=== PATIENT | female | born 1970 | race Two or more races ===

== ENCOUNTER 2023-08-01 11:41 | Outpatient (OUT) | payer BC, SELFPAY ==
[2023-08-01 12:14] LABS: Basophils Percent Auto 0.3 % (0.2-2.0); Eosinophils Absolute Auto 0.1 10^3/uL (0.0-0.7); Eosinophils Percent Auto 1.2 % (0.9-7.0); Hematocrit 44.6 % (36.0-48.0); Hemoglobin 15.3 g/dL (12.0-16.0); Immature Granulocytes Abs Auto 0.03 10^3/uL (0.00-0.03); Immature Granulocytes Pct Auto 0.3 % (0.0-0.5); Lymphocytes Absolute Auto 2.4 10^3/uL (1.2-3.8); Lymphocytes Percent Auto 24.7 % (20.5-60.0); Mean Corpuscular HGB Conc 34.3 g/dL (29.9-35.2); Mean Corpuscular Volume 90.5 fL (81.0-99.0); Mean Platelet Volume 9.7 fL (9.5-13.5); Monocytes Absolute Auto 0.7 10^3/uL (0.3-0.8); Neutrophils Absolute Auto 6.6 10^3/uL (1.4-6.5); Neutrophils Percent Auto 66.5 % (43.0-75.0); Platelet Count 236 10^3/uL (150-450); Red Blood Count 4.93 10^6/uL (4.20-5.40); Red Cell Distribution Width 12.7 % (11.0-15.0); White Blood Count 9.9 10^3/uL (4.0-11.0)
[2023-08-01 12:54] LABS: Estimated Average Glucose 108 mg/dL; Glycohemoglobin A1C 5.4 % (4.5-6.2)
[2023-08-01 12:55] LABS: Alanine Aminotransferase 28 U/L (14-59); Albumin Globulin Ratio 0.9; Albumin Level 3.8 g/dL (3.4-5.0); Alkaline Phosphatase 69 U/L (46-116); Anion Gap 12.8; Aspartate Amino Transferase 15 U/L (15-37); BUN Creatinine Ratio 18.8; Bilirubin Total 1.2 mg/dL (0.2-1.0); Carbon Dioxide 25.8 mmol/L (21.0-32.0); Chloride 99 mmol/L (98-107); Chol HDL Ratio 5.6; Cholesterol 267 mg/dL (<=200); Estimated GFR (African America >60 (>=60); Estimated GFR (Non-African Ame >60 (>=60); Globulin 4.2 g/dL; Glucose 99 mg/dL (74-106); HDL Cholesterol 48 mg/dL (40-60); Potassium 3.6 mmol/L (3.5-5.1); Sodium 134 mmol/L (136-145); Triglycerides 90 mg/dL (<=150)
== END 2023-08-01 11:42 | disposition home or self-care (01) ==
LOC: LAB 11:52
PROVIDERS: PCP Nurse Practitioner Family; Visit Provider Nurse Practitioner Family
DX: E78.5 Hyperlipidemia, unspecified (principal); E11.9 Type 2 diabetes mellitus without complications
CPT/HCPCS: 36415; 80053; 80061; 83036; 85025

== ENCOUNTER 2023-08-07 14:24 | Outpatient (OUT) | payer BC, SELFPAY ==
--- NOTE | 2023-08-07 14:30 | MM_ITS ---
Patient Name: NAKIA DUPONT MR#: [id number] : 1970 Exam Date: 08/07/2023 Ordering Doctor: LEONARDA GRIFFITH [facility] RADIOLOGY REPORT PROCEDURE: MM TOMOSYNTHESIS SCREENING BI COMPARISON: None. INDICATIONS: screening Calculator Name NCI Breast Cancer Risk Assessment Tool 5 Year Breast Cancer Risk 1.50% Lifetime Breast Cancer Risk 12.00% Personal Breast Cancer No Personal Ovarian Cancer No Treatments None Family Cancers Mother with breast cancer at age ~62; Aunt-maternal with breast cancer at age ~60. LOCATION: [facility] BREAST COMPOSITION: Heterogeneously dense,which may obscure small masses. FINDINGS: DIAGNOSTIC CATEGORY 2--BENIGN FINDING: RIGHT BREAST: No significant suspicious finding. Scattered benign-appearing calcifications are present. LEFT BREAST: No significant suspicious finding. Benign-appearing lymph node upper inner quadrant mid breast. RECOMMENDATIONS: ROUTINE MAMMOGRAM AND CLINICAL EVALUATION IN 12 MONTHS. PLEASE NOTE: A NORMAL MAMMOGRAM DOES NOT EXCLUDE THE POSSIBILITY OF BREAST CANCER. A CLINICALLY SUSPICIOUS PALPABLE LUMP SHOULD BE BIOPSIED. Dictated by: Jhonatan Gonzalez M.D. on 08/21/2023 at 08:10 Approved by: Jhonatan Gonzalez M.D. on 08/21/2023 at 08:17
--- NOTE | 2023-08-07 14:31 | US_ITS ---
[place] [id number] Patient Name: NAKIA DUPONT MRN: [id number] date: 1970 Sex: F Assigned Patient Location: MAMMO Current Patient Location: Accession/Order Number: [id number] Exam Date: 08/07/2023 15:30 Report Date: 08/08/2023 07:17 At the request of: LEONARDA GRIFFITH Procedure: US carotid duplex BI EXAMINATION: US carotid duplex BI HISTORY: Elevated blood pressure reading R03.0, Dizzyness R42 COMPARISON: No relevant comparison available. TECHNIQUE: Duplex Doppler ultrasound analysis of carotid and vertebral arteries. . Bilateral carotid arterial duplex examination was performed using B-mode, color flow and spectral analysis. Carotid stenosis is reported according to validated velocity parameters, similar to NASCET criteria. FINDINGS: RIGHT CAROTID ARTERY Mild atherosclerotic plaque Subclavian: PSV: 118.1 cm/s cm/s EDV: 0.0 cm/s cm/s CCA: Prox: PSV: 114.5 cm/s cm/s EDV: 27.3 cm/s cm/s Mid: PSV: 108.0 cm/s cm/s EDV: 33.8 cm/s cm/s Distal: PSV: 79.8 cm/s cm/s EDV: 21.5 cm/s cm/s BULB: PSV: 55.7 cm/s cm/s EDV: 18.2 cm/s cm/s ICA: Prox: PSV: 65.1 cm/s cm/s EDV: 23.2 cm/s cm/s Mid: PSV: 65.9 cm/s cm/s EDV: 29.3 cm/s cm/s Distal: PSV: 74.2 cm/s cm/s EDV: 25.7 cm/s cm/s ECA: PSV: 115.7 cm/s cm/s EDV: 13.9 cm/s cm/s VERTEBRAL: PSV: 44.7 cm/s cm/s EDV: 15.1 cm/s cm/s, antegrade ICA/CCA ratio: PSV: 0.7 EDV: 0.8 LEFT CAROTID ARTERY mild atherosclerotic plaque Subclavian: PSV: 106.5 cm/s cm/s EDV: 0.0 cm/s CCA: Prox: PSV: 81.4 cm/s cm/s EDV: 24.5 cm/s Mid: PSV: 79.0 cm/s cm/s EDV: 19.7 cm/s Distal: PSV: 71.2 cm/s cm/s EDV: 21.5 cm/s BULB: PSV: 72.9 cm/s cm/s EDV: 23.2 cm/s ICA: Prox: PSV: 63.3 cm/s cm/s EDV: 22.3 cm/s Mid: PSV: 65.9 cm/s cm/s EDV: 26.7 cm/s Distal: PSV: 67.7 cm/s cm/s EDV: 24.9 cm/s ECA: PSV: 118.9 cm/s cm/s EDV: 18.7 cm/s VERTEBRAL: PSV: 69.4 cm/s cm/s EDV: 20.6 cm/s , antegrade ICA/CCA ratio: PSV: 0.9 EDV: 1.2 Left thyroid nodule and left neck cervical lymphadenopathy US/US carotid duplex BI IMPRESSION: 0-49% flow stenosis bilateral internal carotid arteries Left thyroid nodule consider dedicated thyroid ultrasound Spectral Doppler US Thresholds (Reference: Franki EG, et al. Radiology 2000; 214:247-252) Stenosis (%) PSV (cm/sec) VICA/VCCA 0-49 <150 <2.5 50-69 150-225 2.5-4.0 >70 >225 >4.0 Electronically authenticated by: OCHOA CANTOR Date: 08/08/2023 07:17
== END 2023-08-07 14:25 | disposition home or self-care (01) ==
LOC: MAMMO 14:25
PROVIDERS: PCP Nurse Practitioner Family; Visit Provider Nurse Practitioner Family
DX: R03.0 Elevated blood-pressure reading, without diagnosis of hypertension (principal); R42 Dizziness and giddiness; Z12.31 Encounter for screening mammogram for malignant neoplasm of breast; E04.1 Nontoxic single thyroid nodule; Z80.3 Family history of malignant neoplasm of breast
CPT/HCPCS: 77063; 77067; 93880

== ENCOUNTER 2023-09-05 13:41 | Outpatient (OUT) | payer BC, SELFPAY ==
--- NOTE | 2023-09-05 14:00 | CA_ITS ---
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1970 Requested By: Zainab Morrell Order Number: [id number] Reading MD: RICHA KEARNEY Interpretive Statements Predominant rhythm is sinus with average rate of 74 bpm Tachycardia - max rate of 123 bpm (NSVT) - longest episode of 1min 56sec with rates between 105-112 bpm Bradycardia - min rate of 46 bpm - longest episode of 24min 57sec with rates between 51-57 bpm Ventricular ectopy - 37 total - 26 PVC NSVT - 1 episode of 11 beat duration Patient triggered events: 7 - associated with symptoms of palpitations, lightheadedness - associated with NSVT, VE - associated with rates of 101 and the rest NSR Impression: Predominant rhythm is sinus with average rate of 74 bpm Fastest rate of 123 bpm (NSVT) and slowest rate of 46 bpm NSVT of 11 beat duration No atrial fibrillation No pauses or blocks Electronically Signed On 09-16-2023 23:10:39 EDT by RICHA KEARNEY
--- OUTSIDE RECORDS SUMMARY | 2023-09-05 14:02 | XMS_ITS | CCD ---
Author Name Unknown Address [address] [place] [address] Organization [facility] Care Team Providers Care Scowman Name Role Phone Zainab Morrell Unavailable NORMA Morrell Primary Care Provider NORMA Morrell Attending Provider [phone] Zainab Morrell Attending Unavailable Zainab Morrell Primary Care Unavailable Zainab Morrell Admitting Unavailable ANGELA TRUONG Referring Unavailable ANGELA TRUONG Attending Unavailable SELF Referring Unavailable Problems Problem Classification Problem Date Documented Date Episodic/Chronic Anxiety disorders (2 sources) Anxiety; Translations: [Anxiety disorder, unspecified] Chronic Cardiac dysrhythmias (1 source) Palpitations; Translations: [Palpitations] Onset: 08-25-2023 Episodic Diabetes mellitus without complication (2 sources) Type 2 diabetes mellitus without complication; Translations: [Type 2 diabetes mellitus without complications] Chronic Disorders of lipid metabolism (3 sources) Hyperlipidemia; Translations: [Hyperlipidemia, unspecified] Onset: 08-25-2023 Chronic Menopausal disorders (2 sources) Perimenopausal state; Translations: [Menopausal and female climacteric states] Chronic Other liver diseases (2 sources) Fatty (change of) liver, not elsewhere classified; Translations: [Fatty liver disease, nonalcoholic] Chronic Other nutritional; endocrine; and metabolic disorders (1 source) Morbid (severe) obesity due to excess calories; Translations: [Obesity, Class III, BMI 40-49.9 (morbid obesity) (HCC)] Onset: 08-25-2023 Chronic Other nutritional; endocrine; and metabolic disorders (1 source) Body mass index (BMI) 40.0-44.9, adult; Translations: [BMI 40.0-44.9, adult (HCC)] Onset: 08-25-2023 Chronic Residual codes; unclassified (1 source) Genetic susceptibility to other disease; Translations: [MTHFR mutation] Onset: 08-25-2023 Episodic Thyroid disorders (4 sources) Thyroid nodule; Translations: [Nontoxic single thyroid nodule] Onset: 08-14-2023 Chronic Results Test Name Value Interpretation Reference Range Facility 25(OH)D3 SerPl-ncon 2023 25-hydroxyvitamin D3 [Mass/Vol] 44.8 ng/mL Normal 31.0-80.0 [facility] Comment on above: Order Comment: Speci men Type: BLOOD SPECIMEN Ordering Facility: [facility] Address: [address] [place] [address] Result Comment: Clas sification of 25 [place] Vitamin D status: Deficiency/Insufficiency: < or = 30 ng/ml. Sufficiency/Optimal Levels: 31-80 ng/mL Toxicity: > 100 ng/mL. Test performed by chemiluminescent immunoassay. Performed By: #### 1 989-3 #### [facility] CLIA [id number] [address] [place] [address] OF [facility] CNOVon 08-25-2023 CNOV Office Visit (FERNANDO ) NAKIA DUPONT ([id number]) 1970 F Date Time Provider Department 08/25/23 11:00 AM ANGELA TRUONG During your visit today, we recorded the following information about you: Pulse Blood pressure Weight Height 64/minute 130/85 103 kg 1.575 m Angela Truong DO 08/25/2023 12:44 PM Signed [facility] SUBJECTIVE: Nakia Segura Miah is a 53 year old female with a PMH as listed below is a new patient who presents for a wellness consult. Consultation requested by self. Accompanied by , Jordi CC: anxiety, menopause HPI: Nakia just moved from [place] and is establishing care at [facility]. She states she doesn't feel herself. She has been taking better care of herself in the past 3 years. In 2020 she was up to 268 lbs, was diabetic and on Metformin. She was in perimenopause. She had cholecystectomy in Jan 2021. Prior to this she had bad case of thrush. She dropped to 196 lbs. She was walking a lot in [place]. She had thinning hair and hair loss. TSH 0.89 in 2021. She had a thyroid US a couple weeks ago that showed thyroid nodules. Had brain MRI in [place] in 2022 for headaches, pulsating noise in ears. She reports MRI was normal. She feels pressure and stopped up sensation in left ear. I want to know if there are hidden issues. In 2018 she developed panic attacks while driving on the highways. No h/o anxiety or panic attacks. No longer having panic attacks but she does have anxiety and wonders if it is due to menopausal changes. She was on HRT in 2021. LMP 1-2 weeks ago. Menstrual cycles are irregular. FSH is in menopausal range. +Hot flashes, mood swings. Wellness goals: I want to feel like myself again. She wants to reducing anxiety and address the need to move because of pulsing sensation. She brought copies of medical records. Thyroid US 08/14/23 - thyroid nodules with largest in the left lobe. FNA scheduled on 09/29 in [place]. Brain MRI 07/13/22 - normal Labs 08/01/23 (LDL 201, A1c 5.4, nml CBC and CMP) She reports MTHFR mutation. Patient-Entered Questionnaires [facility] Physical Function 08/19/2023 PROMIS Physical Function T-Score 50 (within normal limits) [facility] Pain Interference 08/19/2023 PROMIS Pain Interference T-Score (range: 10 - 90) 54 (within normal limits) [facility] Fatigue 08/19/2023 PROMIS Fatigue T-Score 48 (within normal limits) [facility] Satisfaction with Social Roles 08/19/2023 PROMIS - Satisfaction with Participation in Social Roles T-Score 52 (Average) [facility] Anxiety 08/19/2023 PROMIS Anxiety T-Score 62 (moderate) [facility] Sleep Disturbance 08/19/2023 PROMIS Sleep Disturbance T-Score 54 (within normal limits) [facility] NEUROQOL COGNITIVE T-SCORE 08/19/2023 PROMIS Neuroqol Cognitive T-Score 52 (within normal limits) DIET OVERVIEW: Eats healthy foods with healthy fats. She cooks at home. Sourdough bread. Not eating out much. No fast food. Food allergies: none Food sensitivities: wheat bothers her and makes prickly (no FHx celiac) 24h DIETARY RECALL: B: 2-3 eggs cooked in EVOO with sourdough or Siete almond flour tortillas. May add turkey or uncured mackey. Or ground beef with scrambled eggs. L: snacks D: 3 chicken legs, avocado, yellow potatoes Sweets: some ice cream, Christel's lucy chips, GF muffin mix Snacks: pork rinds, sprouted nuts, pumpkin seeds, banana chips, cranberries Nguyen: water, 1/2 can Zevia/day. Occ juice, 1/2 coffee with half and half. Alc: none LES: muffin, sourdough, cheese MEAL TIMING: B: 11 am L: skips or has tuna and EVOO or eggs and hays with almond flour crackers D: 4-5 pm. LES 10-10:30 pm PHYSICAL ACTIVITY: Some walking but very little exercise. SLEEP: Sleep quality: Trouble staying asleep (anxiety) x 3 years. Sleep aids: bedtime teas Bedtime: 10-midnight Wake time: 9-10 am Hours/night: 6-8h/night -Snoring STRESS LEVELS: High. When not feeling well she worries. STRESS RELIEF: Nothing. No support system here. 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 No current outpatient medications on file. No current facility-administered medications for this visit. No family history on file. REVIEW OF SYSTEMS: GEN: +Intermittent fatigue CV: +Intermittent palpitations. Denies chest pain. PULM: Denies dyspnea. GI: Denies diarrhea, constipation. Daily BMs. MSK: +Neck and upper back pain. PSYCH: +Sleep difficulties, anxiety, depression PHYSICAL EXAMINATION: VS: BP 130/85 Pulse 64 Ht 157.5 cm (5' 2 ) Wt 103 kg (227 lb) BMI 41.52 kg/m? General: (more content not included)... Normal [facility] CRP SerPl HS-mCncon 08-25-19 24 CRP High sensitivity method [Mass/Vol] 5.7 mg/L High <3.1 [facility] Comment on above: Order Comment: Earlene arriola Type: BLOOD SPECIMEN Ordering Facility: [facility] Address: [address] [place] [address] Result Comment: hsCR P < 1.0 mg/L, relative risk is low hsCRP 1.0-3.0 mg/L, relative risk is average hsCRP > 3.0 mg/L, relative risk is high Reference: Cora TA, Ariana GA, Diomedes RW, et al. Markers of Inflammation and Cardiovascular Disease. Application to Clinical and Public Health Practice. A Statement for Healthcare Professionals from the Centers for Disease Control and Prevention and the [place] [employer]. Circulation 2003;107:499-511. Performed By: #### 3 051-0, 3024-7, 44770-7 #### [facility] CLIA [id number] [address] [place], [place] [address] [place] [address] [place] Folate SerPl-mCncon 08-25-19 Folate [Mass/Vol] 17.2 ng/mL Normal >4.7 [facility] Comment on above: Order Comment: Earlene arriola Type: BLOOD SPECIMEN Ordering Facility: [facility] Address: [address] [place] [address] Performed By: #### T MAO #### [facility] CLIA [id number] [address] [place] [address] Hcys SerPl-sCncon 08-25-2023 Homocysteine [Moles/Vol] 8.6 umol/L Normal <15.1 [facility] Comment on above: Order Comment: Uniquei zeinab Type: BLOOD SPECIMEN Ordering Facility: [facility] Address: [address] [place] [address] Performed By: #### 1 3965-9 #### [facility] CLIA [id number] [address] [place] [address] [place] Insulin SerPl-aCncon 024 Insulin Qn 14.8 u[IU]/mL Normal 3.0-25.0 [facility] Comment on above: Order Comment: Speci men Type: BLOOD SPECIMEN Ordering Facility: [facility] Address: [address] [place] [address] Performed By: #### T MAO #### [facility] CLIA [id number] [address] [place], [place] [address] Methylmalonate SerPl-sCncon 08-25-2023 Methylmalonate [Moles/Vol] 0.10 umol/L Normal <=0.40 [facility] Comment on above: Order Comment: Speci men Type: BLOOD SPECIMEN Ordering Facility: [facility] Address: [address] [place] [address] Result Comment: This test was developed and its performance characteristics determined by [facility]'s Rick [facility]Adrienne [facility] Pathology and Laboratory Medicine [place] (-PLMI). It has not been cleared or approved by the FDA. RT-PLMT is regulated under CLIA as qualified to perform high-complexity testing. This test is used for clinical purposes. It should not be regarded as investigational or for research. Performed By: #### 1 3964-2 #### [facility] CLIA [id number] [address] [place] [address] [place] OMEGACHECKon 08-25-2023 ARACHIDONIC ACID 11.6 % by wt Normal 8.6-15.6 [facility] Comment on above: Order Comment: Speci men Type: BLOOD SPECIMEN Ordering Facility: [facility] Address: [address] [place] [address] Performed By: #### O MEGAC #### [facility] CLIA [id number] [address] [place] [address] ARACHIDONIC ACID/EPA RATIO 22.3 Normal 3.7-40.7 [facility] Comment on above: Order Comment: Speci men Type: BLOOD SPECIMEN Ordering Facility: [facility] Address: [address] [place], [place] [address] Result Comment: Rece ived Date: Performed By: #### O MEGAC #### [facility] CLIA [id number] [address] [place] [address] DHA 2.3 % by wt Normal 1.4-5.1 [facility] Comment on above: Order Comment: Speci men Type: BLOOD SPECIMEN Ordering Facility: [facility] Address: [address] [place] [address] Performed By: #### O MEGAC #### [facility] CLIA [id number] [address] [place] [address] DPA 0.9 % by wt Normal 0.8-1.8 [facility] Comment on above: Order Comment: Speci men Type: BLOOD SPECIMEN Ordering Facility: [facility] Address: [address] [place] [address] Performed By: #### O MEGAC #### [facility] CLIA [id number] [address] [place] [address] EPA 0.5 % by wt Normal 0.2-2.3 [facility] Comment on above: Order Comment: Speci men Type: BLOOD SPECIMEN Ordering Facility: [facility] Address: [address] [place] [address] Performed By: #### O MEGAC #### [facility] CLIA [id number] [address] [place] [address] LINOLEIC ACID 27.4 % by wt Normal 18.6-29.5 [facility] Comment on above: Order Comment: Speci men Type: BLOOD SPECIMEN Ordering Facility: [facility] Address: [address] [place] [address] Performed By: #### O MEGAC #### [facility] CLIA [id number] [address] [place] [address] OMEGA-3 TOTAL 3.7 % by wt Normal [facility] Comment on above: Order Comment: Speci men Type: BLOOD SPECIMEN Ordering Facility: [facility] Address: [address] [place] [address] Performed By: #### O MEGAC #### [facility] CLIA [id number] [address] [place] [address] OMEGA-6 TOTAL 41.8 % by wt Normal [facility] Comment on above: Order Comment: Speci men Type: BLOOD SPECIMEN Ordering Facility: [facility] Address: [address] [place], [place] [address] Result Comment: [facility] measures a number of omega-6 fatty acids with AA and LA being the two most abundant forms reported. Performed By: #### O MEGAC #### [facility] CLIA [id number] [address] [place] [address] OMEGA-6/OMEGA-3 RATIO 11.2 Normal 3.7-14.4 [facility] Comment on above: Order Comment: Speci men Type: BLOOD SPECIMEN Ordering Facility: [facility] Address: [address] [place], [place] [address] Performed By: #### O MEGAC #### [facility] CLIA [id number] [address] [place] [address] OMEGACHECK 3.7 % by wt Low >5.4 [facility] Comment on above: Order Comment: Speci [facility] Type: BLOOD SPECIMEN Ordering Facility: [facility] Address: [address] [place], [place] [address] Result Comment: Incr easing blood levels of long-chain n-3 fatty acids are associated with a lower risk of sudden cardiac (1). Based on the top (75th percentile) and bottom (25th percentile) quartiles of the [facility] reference population, the following relative risk categories were established for OmegaCheck: A cut-off of >=5.5% by wt defines a population at optimal relative risk, 3.8-5.4% by wt defines a population at moderate relative risk, and <=3.7% by wt defines a population at high relative risk of sudden cardiac . The totality of the scientific evidence demonstrates that when consumption of fish oils is limited to 3 g/day or less of EPA and DHA, there is no significant risk for increased bleeding time beyond the normal range. A daily dosage of 1 gram of EPA and DHA lowers the circulating triglycerides by about 7-10% within 2 to 3 weeks. (Reference: 1-Ric motley al. [facility]. 2002; 346: 7325-7668).This test was developed and its analytical performance characteristics have been determined by [facility]. It has not been cleared or approved by the U.S. Food and Drug Administration. This assay has been validated pursuant to the CLIA regulations and is used for clinical purposes. Performed By: #### O [facility] #### [facility] CLIA [id number] [address] [place] [address] T3Free SerPl-mCncon 08-25-19 24 Free T3 [Mass/Vol] 3.1 pg/mL Normal 2.3-4.1 [facility] Comment on above: Order Comment: Speci men Type: BLOOD SPECIMEN Ordering Facility: [facility] Address: [address] [place] [address] Performed By: #### 3 051-0, 3027, 38864-5 #### [facility] CLIA [id number] [address] [place] [address] [place] T4 Free SerPl-mCncon 024 Free T4 [Mass/Vol] 1.4 ng/dL Normal 0.9-1.7 [facility] Comment on above: Order Comment: Earlene arriola Type: BLOOD SPECIMEN Ordering Facility: [facility] Address: [address] [place] [address] Performed By: #### 3 051-0, 3027, 27184-4 #### [facility] CLIA [id number] [address] [place] [address] [place] TMAOon 08-25-2023 TMAO 2.3 uM Normal <6.2 [facility] Comment on above: Order Comment: Speci men Type: BLOOD SPECIMEN Ordering Facility: [facility] Address: [address] [place] [address] Result Comment: Base d on a population (W=[id number]) defined as ambulatory stable patients without acute coronary syndrome who underwent elective diagnostic coronary angiography (1) and a reference range study of apparently healthy donors (N=180), we have defined the following cut-offs for TMAO to assess relative risk of a cardiovascular event: A cut-off of <6.2 uM defines a population at optimal relative risk for a cardiovascular event relative to those above this level. 6.2-9.9 uM defines a population at moderate relative risk for a cardiovascular event (two-fold increased risk of MACE at 3 years) relative to those with TMAO <6.2 uM (1). Given the dose-dependent relationship between TMAO and cardiovascular event risk demonstrated across multiple clinical subgroups (2), those above the upper limit of the [facility] 95% population interval (>=10.0 uM) are defined as high relative risk for a cardiovascular event relative to those with TMAO <6.2 uM. (References: 1-Randy et al. N Engl J Med. 2013; 368:5399-0848. 2-Payton Manrique et al. J Am Heart Assoc. 2017;6(7)).This test was developed and its analytical performance characteristics have been determined by [facility]. It has not been cleared or approved by the U.S. Food and Drug Administration. This assay has been validated pursuant to the CLIA regulations and is used for clinical purposes. Received Date: Performed By: #### T MAO #### [facility] CLIA [id number] [address] [place] [id number] TSH SerPl-aCncon 08-25-2023 TSH Qn 1.080 m[IU]/L Normal 0.270-4.200 [facility] Comment on above: Order Comment: Earlene arriola Type: BLOOD SPECIMEN Ordering Facility: [facility] Address: [address] [place] [address] Performed By: #### 3 016-3 #### [facility] CLIA [id number] [address] [place] [id number] [place] Vit B12 SerPl-ncon 024 Cobalamin (Vitamin B12) [Mass/Vol] 690 pg/mL Normal 232-1245 [facility] Comment on above: Order Comment: Speci men Type: BLOOD SPECIMEN Ordering Facility: [facility] Address: [address] [place] [address] [place] [address] Performed By: #### T MAO #### [facility] CLIA [id number] [address] [place] [address] [place], [place] [id number] US thyroidon 08-14-2023 thyroid [facility] [place] [address] [place] [address] Ultrasound Report Signed Patient: Nakia Dupont MR#: [id number] 48 : 1970 Acct:[id number] Age/Sex: 53 / F ADM Date: 08/14/23 Loc: Room: Type: [facility] Attending Dr: Zainab Morrell APRN, NP-C Ordering Provider: Zainab Morrell APRN, CNP Date of Service: 08/14/23 US/US thyroid: Thyroid nodule Copies to: Zainab Morrell APRN, CNP Thyroid ultrasound Reason for exam: Thyroid nodule Comparison: none Technique: Grayscale and color Doppler images of the thyroid gland were obtained. Findings: Right lobe measures 4.8 x 1.5 x 2.0 cm. Left lobe measures 4.3 x 1.7 x 2.9 cm. Isthmus measures 0.27 cm. No hyperemia. Colloid cyst inferior pole right lobe. Hypoechoic nodule superior pole left lobe measuring 1.5 x 1.3 x 0.8 cm. A solid/cystic nodule is seen involving the inferior pole of the left lobe measuring 2.7 x 1.2 x 2.3 cm. US/US thyroid Impression: Thyroid nodules involving the left lobe largest measuring 2.7 x 1.2 x 2.3 cm. FNA should be considered. Impression dictated by: Zelalem Castro Jr., D.O.08/14/2023 3:57 PM Dictation Location: [place] [address] Tech: Zainab Carrera Transcribed By: CHANELL 08/14/23 1557 Dictated By: Zelalem Castro Jr, 08/14/23 1556 Signed By: 08/14/23 1557 Normal [facility] Vital Signs Date Time Vital Sign Value Performing Clinician Laila raza 07-30-2023 15:30-0500 Body height 157.48 cm ELECTRONIC SPECIALISTMarlee Morrell Work Phone: [facility] 07-30-2023 15:30-0500 Body weight 104.32 kg ELECTRONIC SPECIALISTMarlee Morrell Work Phone: [facility] 07-30-2023 15:30-0500 Diastolic blood pressure 90 mm[Hg] NORMA Morrell Work Phone: [facility] 07-30-2023 15:30-0500 Systolic blood pressure 144 mm[Hg] NORMA Morrell Work Phone: [facility] Encounters Encounter Date Encounter Type Care Provider Facility Start: 08-25-2023 End: 08-26-2023 ambulatory ANGELA TRUONG Facility:[facility] Start: 08-14-2023 End: 08-14-2023 ambulatory Zainab Morrell Facility:[facility] Start: 08-14-2023 End: 08-14-2023 ambulatory NORMA Morrell Work Phone: [facility] Work Phone: Start: 08-14-2023 End: 08-14-2023 Patient encounter procedure ELECTRONIC SPECIALISTMarlee Morrell Work Phone: [facility] [place] Work Phone: Start: 08-08-2023 End: 08-08-2023 ambulatory Zainab Morrell Other [facility] Other Start: 08-08-2023 Telephone encounter Zainab gutiérrez [facility] Start: 08-04-2023 End: 08-04-2023 ambulatory Zainab Morrell Other [facility] Other Start: 08-04-2023 Telephone encounter Zainab Burch her [facility] Start: 07-30-2023 End: 07-30-2023 Patient encounter procedure ELECTRONIC SPECIALISTMarlee Morrell Work Phone: [facility]- Procedures Date Procedure Procedure Detail Performing Clinician Start: 08-14-2023 US scan of thyroid ELECTRONIC SPECIALIST Zainab Morrell Work Phone: Payers Date Payer Category Payer Self-pay 2018 [facility] [id number] Unknown [id number] Social History Date Type Detail Facility Sex Assigned At [facility] Other Start: 1970 Sex Assigned At Female F [facility] Progress note 08-25-2023 Note Date & Type Note Facility 08-25-2023 Note HNO ID: [id number] Author: ANGELA TRUONG, DO Service: ? Author Type: Physician Type: Progress Notes Filed: 08/25/2023 12:44 Note Text: [facility] SUBJECTIVE: Nakia Dupont is a 53 year old female with a PMH as listed below is a new patient who presents for a wellness consult. Consultation requested by self. Accompanied by , Jordi CC: anxiety, menopause HPI: Nakia just moved from [place] and is establishing care at [facility]. She states she doesn't feel herself. She has been taking better care of herself in the past 3 years. In 2020 she was up to 268 lbs, was diabetic and on Metformin. She was in perimenopause. She had cholecystectomy in Jan 2021. Prior to this she had bad case of thrush. She dropped to 196 lbs. She was walking a lot in [place]. She had thinning hair and hair loss. TSH 0.89 in 2021. She had a thyroid US a couple weeks ago that showed thyroid nodules. Had brain MRI in [place] in 2022 for headaches, pulsating noise in ears. She reports MRI was normal. She feels pressure and stopped up sensation in left ear. I want to know if there are hidden issues. In 2018 she developed panic attacks while driving on the highways. No h/o anxiety or panic attacks. No longer having panic attacks but she does have anxiety and wonders if it is due to menopausal changes. She was on HRT in 2021. LMP 1-2 weeks ago. Menstrual cycles are irregular. FSH is in menopausal range. +Hot flashes, mood swings. Wellness goals: I want to feel like myself again. She wants to reducing anxiety and address the need to move because of pulsing sensation. She brought copies of medical records. Thyroid US 08/14/23 - thyroid nodules with largest in the left lobe. FNA scheduled on 09/29 in [place]. Brain MRI 07/13/22 - normal Labs 08/01/23 (LDL 201, A1c 5.4, nml CBC and CMP) She reports MTHFR mutation. Patient-Entered Questionnaires [facility] Physical Function 08/19/2023 PROMIS Physical Function T-Score 50 (within normal limits) [facility] Pain Interference 08/19/2023 PROMIS Pain Interference T-Score (range: 10 - 90) 54 (within normal limits) [facility] Fatigue 08/19/2023 PROMIS Fatigue T-Score 48 (within normal limits) [facility] Satisfaction with Social Roles 08/19/2023 PROMIS - Satisfaction with Participation in Social Roles T-Score 52 (Average) [facility] Anxiety 08/19/2023 PROMIS Anxiety T-Score 62 (moderate) [facility] Sleep Disturbance 08/19/2023 PROMIS Sleep Disturbance T-Score 54 (within normal limits) [facility] NEUROQOL COGNITIVE T-SCORE 08/19/2023 PROMIS Neuroqol Cognitive T-Score 52 (within normal limits) DIET OVERVIEW: Eats healthy foods with healthy fats. She cooks at home. Sourdough bread. Not eating out much. No fast food. Food allergies: none Food sensitivities: wheat bothers her and makes prickly (no FHx celiac) 24h DIETARY RECALL: B: 2-3 eggs cooked in EVOO with sourdough or Siete almond flour tortillas. May add turkey or uncured mackey. Or ground beef with scrambled eggs. L: snacks D: 3 chicken legs, avocado, yellow potatoes Sweets: some ice cream, Christel's lucy chips, GF muffin mix Snacks: pork rinds, sprouted nuts, pumpkin seeds, banana chips, cranberries Nguyen: water, 1/2 can Zevia/day. Occ juice, 1/2 coffee with half and half. Alc: none LES: muffin, sourdough, cheese MEAL TIMING: B: 11 am L: skips or has tuna and EVOO or eggs and hays with almond flour crackers D: 4-5 pm. LES 10-10:30 pm PHYSICAL ACTIVITY: Some walking but very little exercise. SLEEP: Sleep quality: Trouble staying asleep (anxiety) x 3 years. Sleep aids: bedtime teas Bedtime: 10-midnight Wake time: 9-10 am Hours/night: 6-8h/night -Snoring STRESS LEVELS: High. When not feeling well she worries. STRESS RELIEF: Nothing. No support system here. 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 No current outpatient medications on file. No current facility-administered medications for this visit. No family history on file. REVIEW OF SYSTEMS: GEN: +Intermittent fatigue CV: +Intermittent palpitations. Denies chest pain. PULM: Denies dyspnea. GI: Denies diarrhea, constipation. Daily BMs. MSK: +Neck and upper back pain. PSYCH: +Sleep difficulties, anxiety, depression PHYSICAL EXAMINATION: VS: BP 130/85 Pulse 64 Ht 157.5 cm (5' 2 ) Wt 103 kg (227 lb) BMI 41.52 kg/m? General: alert and appropriate, in no distress, well-hydrated, well nourished, happy, smiling, interactive, and appears anxious Posture and motor behavior: normal posture and motor behavior Respiratory: breathing non-labored LABS: ASSESSMENT and PLAN: Nakia Kruse (more content not included)... [facility] Evaluation note 08-08-2023 Note Date & Type Note Facility 08-08-2023 Evaluation note Encounter Date Diagnosis Assessment Notes Jul, Thyroid nodule (ICD-10 - E04.1) [facility] Other Evaluation note Note Date & Type Note Facility Evaluation note No Information [facility] Other Evaluation note Note Date & Type Note Facility Evaluation note No assessment information availa [facility] Work Phone: History general Narrative - Reported Note Date & Type Note Facility History general Narrative - Reported Type Medical History Diabetes Surgical History Exploratory Laporoscopy Surgical History x2 Surgical History Cholecystectomy 2020 [facility] Other Chief Complaint and Reason for Visit Chief Complaint Establish E04.1 Family History No Family History Records Found Relationship Condition Age at Onset Recorded Date/T franck grandparent Heart disease Unknown grandparent Type 1 diabetes mellitus Unknown Not Specified Family history of other condition Unknow n Advance Directives No Advanced Directives Records Found Advance Directive Response Recorded Date/ Time Advance Directives No July 4:18pm Summary Purpose Additional Source Comments REASON FOR VISIT (unrecogniz ed section and content) lab resultsUS results Care Teams (unrecognized sec tion and content) Team Status: Active Member Role Status Dates Zainab Morrell APRN CUSTOMER SALES ADVISOR-C Primary Care Provider Active Team Status: Inactive Member Role Status Dates NORMA Arriaga Attending Provider Act ar Start: July 30, 2023 End: July 30, 2023 Team Status: Inactive Member Role Status Dates Zainab Morrell APRN CUSTOMER SALES ADVISOR-Diony Primary Care Provider, Attending Provider Active Start: August 14, 2023 End: August 14, 2023 Goals (unrecognized section and content) Goals may be documented in a n alternate section INFORMATION SOURCE (unrecogn ized section and content) DATE CREATED AUTHOR 08/18/2023 [facility] DATE CREATED AUTHOR AUTHOR'S ORGANIZ ATION 09/02/2023 [facility] FOR RECORDS PERTAINING TO PATIENTS WHO ARE OR HAVE BEEN ENROLLED IN A CHEMICAL DEPENDENCY/SUBSTANCEABUSE PROGRAM, SOME INFORMATION MAY BE OMITTED. This clinical summary was aggregated from multiple sources. Caution should be exercised in using it in the provision of clinical care. This summary normalizes information from multiple sources, and as a consequence, information in this document may materially change the coding, format and clinical context of patient data. In addition, data may be omitted in some cases. CLINICAL DECISIONS SHOULD BE BASED ON THE PRIMARY CLINICAL RECORDS. [facility] provides no warranty or guarantee of the accuracy or completeness of information in this document.
== END 2023-09-05 13:42 | disposition home or self-care (01) ==
LOC: CARD 13:42
PROVIDERS: PCP Nurse Practitioner Family; Visit Provider Nurse Practitioner Family
DX: I49.9 Cardiac arrhythmia, unspecified (principal)
CPT/HCPCS: 93242

== ENCOUNTER 2023-09-23 11:41 | Outpatient (OUT) | payer BC, SELFPAY ==
--- NOTE | 2023-09-23 11:48 | XR_ITS ---
The [address] [address] Patient Name: NAKIA DUPONT MRN: [id number] date: 1970 Sex: F Assigned Patient Location: [facility] Current Patient Location: [facility] Accession/Order Number: [id number] Exam Date: 09/23/2023 11:55 Report Date: 09/23/2023 13:21 At the request of: LEONARDA GRIFFITH Procedure: XR thoracic spine 3V EXAMINATION: XR thoracic spine 3V, XR cervical spine 5V HISTORY: pain in thoracic spine, neck pain M54.6, M54.2 COMPARISON: No relevant comparison available. FINDINGS: BONES: Reversal of normal cervical lordosis with normal alignment of the thoracic spine. No acute fracture or spondylolisthesis . Mild to moderate diffuse degenerative spondylosis most significant in the cervical spine at C5-C6 DISC SPACES: Multilevel disc space narrowing most significant C5-C6 PARASPINOUS: Negative. No paraspinous abnormality is seen. OTHER: Negative. XR/XR thoracic spine 3V IMPRESSION: [id number] degenerative changes of the cervical and thoracic spine Reversal of normal cervical lordosis Electronically authenticated by: OCHOA CANTOR Date: 09/23/2023 13:21
--- NOTE | 2023-09-23 11:49 | XR_ITS ---
The [address] [address] Patient Name: NAKIA DUPONT MRN: [id number] date: 1970 Sex: F Assigned Patient Location: [facility] Current Patient Location: [facility] Accession/Order Number: [id number] Exam Date: 09/23/2023 11:55 Report Date: 09/23/2023 13:21 At the request of: LEONARDA GRIFFITH Procedure: XR cervical spine 5V EXAMINATION: XR thoracic spine 3V, XR cervical spine 5V HISTORY: pain in thoracic spine, neck pain M54.6, M54.2 COMPARISON: No relevant comparison available. FINDINGS: BONES: Reversal of normal cervical lordosis with normal alignment of the thoracic spine. No acute fracture or spondylolisthesis . Mild to moderate diffuse degenerative spondylosis most significant in the cervical spine at C5-C6 DISC SPACES: Multilevel disc space narrowing most significant C5-C6 PARASPINOUS: Negative. No paraspinous abnormality is seen. OTHER: Negative. XR/XR cervical spine 5V IMPRESSION: [id number] degenerative changes of the cervical and thoracic spine Reversal of normal cervical lordosis Electronically authenticated by: OCHOA CANTOR Date: 09/23/2023 13:21
== END 2023-09-23 11:42 | disposition home or self-care (01) ==
LOC: RAD 11:43
PROVIDERS: PCP Nurse Practitioner Family; Visit Provider Nurse Practitioner Family
DX: M54.6 Pain in thoracic spine (principal); M54.2 Cervicalgia
CPT/HCPCS: 72050; 72072

== ENCOUNTER 2024-08-10 10:23 | Outpatient (OUT) | payer BC, SELFPAY ==
--- NOTE | 2024-08-10 10:24 | MM_ITS ---
Patient Name: NAKIA DUPONT MR#: [id number] : 1970 Exam Date: 08/10/2024 Ordering Doctor: LEONARDA GRIFFITH [employer]ERSON[employer] SERVICES DIRECTOR-C RADIOLOGY REPORT PROCEDURE: MM TOMOSYNTHESIS SCREENING BI COMPARISON: MG MAMM SCREEN 3D JOAO CAD, 08/03/2022. MM TOMOSYNTHESIS SCREENING BI, 08/07/2023. INDICATIONS: Screening Calculator Name NCI Breast Cancer Risk Assessment Tool 5 Year Breast Cancer Risk 1.50% Lifetime Breast Cancer Risk 11.80% Personal Breast Cancer No Personal Ovarian Cancer No Treatments None Family Cancers Mother with breast cancer at age ~62; Aunt-maternal with breast cancer at age ~60. LOCATION: [facility] BREAST COMPOSITION: The breasts are heterogeneously dense,which may obscure small masses. FINDINGS: DIAGNOSTIC CATEGORY 2--BENIGN FINDING. NO CHANGE FROM COMPARISON. Scattered benign-appearing calcifications are present. Scattered benign-appearing lymph nodes are present. RIGHT BREAST: No significant suspicious finding. LEFT BREAST: No significant suspicious finding. RECOMMENDATIONS: ROUTINE MAMMOGRAM AND CLINICAL EVALUATION IN 12 MONTHS. PLEASE NOTE: A NORMAL MAMMOGRAM DOES NOT EXCLUDE THE POSSIBILITY OF BREAST CANCER. A CLINICALLY SUSPICIOUS PALPABLE LUMP SHOULD BE BIOPSIED. Dictated by: Adam Schuster MD on 08/10/2024 at 11:34 Approved by: Adam Schuster MD on 08/10/2024 at 11:35
--- OUTSIDE RECORDS SUMMARY | 2024-08-10 10:33 | XMS_ITS | CCD ---
Author Organization [facility] Care Team Providers Care Meter Mechanic Name Role Phone Zainab Morrell Unavailable [phone] NORMA Morrell Primary Care Provider NORMA Morrell Attending Provider ANGELA TRUONG Referring Unavailable ANGELA TRUONG Attending Unavailable SELF Referring Unavailable Unavailable Primary Care Provider Unavaillauren e NORMA Morrell Primary Care Provider NORMA Morrell Attending Provider [phone] MD Cortes uGpta Attending Provider [phone] Zainab Morrell Admitting Unavailable AnarbacherZainab Primary Care Unavailable Zainab Morrell Attending Unavailable AnarbmarisabelrZainab Admitting Unavailable Rohrbacher, Zainab Primary Care Unavailable Zainab Morrell Attending Unavailable Cortes Gupta Attending Unavailable Zainab Morrell Primary Care Unavailable Cortes Gupta Admitting Unavailable Anarbacher Zainab SAHA Primary Care Provider Cortes Gupta MD Unavailable [phone] CORTES GUPTA Attending Unavailable CORTES GUPTA Attending Unavailable CORTES GUPTA Attending Unavailable CORTES GUPTA Attending Unavailable CORTES GUPTA Attending Unavailable ZAINAB MORRELL A Referring Unavailab KADEN Meyer Attending Unavailable Medications Current Medications Medication Drug Class(es) Dates Sig (Normalized) Sig (Original) ascorbic acid 1000 mg oral tablet (2 sources) Vitamin C take 1-2 tablets by mouth once daily Ascorbic Acid (vitamin C) 1000 MG tablet Take 1-2 tablets by mouth Daily Active calcium ascorbate 500 mg oral tablet (2 sources) Start: 03-26-2024 take 1 tablet by mouth once daily Ascorbate Calcium (Vitamin C) 500 mg tablet Active 500 MG PO Daily March 25, 2024 11:00pm docosahexaenoic acid 120 mg / eicosapentaenoic acid 180 mg oral capsule (2 sources) take 1 capsule by mouth once daily fish oil-omega-3 fatty acids 1000 MG capsule Take 2 g by mouth Daily Active liothyronine sodium 0.005 mg oral tablet (2 sources) l-Triiodothyron ine Start: 01-26-2024 End: 07-19-2024 liothyronine (Cytomel) 5 MCG tablet Indications: ESS (euthyroid sick syndrome) , Chronic fatigue , Thyroid nodule (CMS/HCC) Take 1 tablet in AM and 1 tablet in PM on an empty stomach. RAMESH; Sigma or MIKA Audio brands only 60 tablet 01/26/2024 07/19/2024 Discontinued (Discontinued by another clinician) Magnesium glycinate (1 source) Start: 03-26-2024 Magnesium Glycinate Active MG PO March 26, 2024 12:00am Magnesium Glycinate 100 mg magnesium capsule (1 source) Start: 03-26-2024 Magnesium Glycinate 100 mg magnesium capsule Active MG PO March 25, 2024 11:00pm Coalgate-3 Fatty Acids (1 source) Start: 03-26-2024 take 500 mg by mouth once daily Coalgate-3 Fatty Acids Active 500 MG PO Daily March 26, 2024 12:00am Coalgate-3 Fatty Acids 500 mg capsule (1 source) Start: 03-26-2024 take 1 capsule by mouth once daily Coalgate-3 Fatty Acids 500 mg capsule Active 500 MG PO Daily March 25, 2024 11:00pm VITAMIN D-VITAMIN K PO (2 sources) VITAMIN D-VITAMI N K PO Take by mouth Active Vitamin D3-Vitamin K2 (2 sources) Start: 03-26-2024 Vitamin D3-Vitamin K2 1,250-200 mcg capsule Active CAP PO March 25, 2024 11:00pm Start: 03-26-2024 Vitamin D3-Vit nunes K2 Active CAP PO March 26, 2024 12:00am Completed/Discontinued Medications Medication Drug Class(es) Dates Sig (Normalized) Sig (Original) bifidobacterium animalis [id number] unt / lactobacillus acidophilus [id number] unt oral capsule (2 sources) Start: 11-25-2023 Probiotic Product (Daily Probiotic) capsule Indications: Enteritis, noninfectious Essential-Biotics Complete (probiotic) as directed 11/25/2023 Active Problems Active Problems Problem Classification Problem Date Documented Date Episodic/Chronic Anxiety disorders (7 sources) Anxiety; Translations: [Anxiety disorder, unspecified] 09-22-2023 Chronic Cardiac dysrhythmias (9 sources) Multiple premature ventricular complexes; Translations: [Ventricular premature depolarization] Onset: 09-29-2023 09-22-2023 Chronic Cardiac dysrhythmias (1 source) Palpitations; Translations: [Palpitations] Onset: 08-25-2023 Episodic Diabetes mellitus without complication (11 sources) Type 2 diabetes mellitus without complication; Translations: [Type 2 diabetes mellitus without complications] Onset: 10-15-2023 09-22-2023 Chronic Disorders of lipid metabolism (10 sources) Hyperlipidemia; Translations: [Hyperlipidemia, unspecified] Onset: 07-04-2022 09-22-2023 Chronic Essential hypertension (2 sources) Hypertensive disorder; Translations: [Essential (primary) hypertension] Onset: 10-15-2023 10-15-2023 Chronic Malaise and fatigue (2 sources) Fatigue; Translations: [Chronic fatigue, unspecified] Onset: 11-10-2023 11-10-2023 Chronic Malaise and fatigue (2 sources) Fatigue; Translations: [Other fatigue] 08-04-2024 Episodic Menopausal disorders (8 sources) Perimenopausal state; Translations: [Menopausal and female climacteric states] Onset: 10-15-2023 09-22-2023 Chronic Mood disorders (2 sources) Depressive disorder; Translations: [Depressive disorder] Onset: 10-15-2023 10-15-2023 Chronic Nutritional deficiencies (2 sources) Vitamin D deficiency; Translations: [Vitamin D deficiency, unspecified] 08-04-2024 Chronic Nutritional deficiencies (2 sources) Cobalamin deficiency; Translations: [Deficiency of other specified B group vitamins] 08-04-2024 Episodic Other connective tissue disease (4 sources) Muscle weakness of upper limb; Translations: [Other symptoms and signs involving the musculoskeletal system] 07-19-2024 Episodic Other connective tissue disease (4 sources) Pain in right arm; Translations: [Pain in right arm] 07-19-2024 Episodic Other connective tissue disease (4 sources) Pain in left arm; Translations: [Pain in left arm] 07-19-2024 Episodic Other connective tissue disease (2 sources) Pain of bilateral hands; Translations: [Pain in right hand] 07-19-2024 Episodic Other liver diseases (6 sources) Fatty (change of) liver, not elsewhere classified; Translations: [Nonalcoholic fatty liver disease] 09-22-2023 Chronic Other liver diseases (2 sources) Steatosis of liver; Translations: [Fatty (change of) liver, not elsewhere classified] Onset: 10-15-2023 10-15-2023 Chronic Other nervous system disorders (2 sources) Bilateral carpal tunnel syndrome; Translations: [Carpal tunnel syndrome, bilateral upper limbs] 07-19-2024 Chronic Other nervous system disorders (4 sources) Numbness; Translations: [Anesthesia of skin] 07-19-2024 Episodic Other nervous system disorders (2 sources) Paresthesia of skin; Translations: [Disturbance of skin sensation] 07-19-2024 Episodic Other non-traumatic joint disorders (2 sources) Ankle pain; Translations: [Pain in left ankle and joints of left foot] 03-26-2024 Episodic Other non-traumatic joint disorders (1 source) Pain in left ankle and joints of left foot; Translations: [Pain in joint, ankle and foot] 03-26-2024 Episodic Other nutritional; endocrine; and metabolic disorders (1 source) Morbid (severe) obesity due to excess calories; Translations: [Obesity, Class III, BMI 40-49.9 (morbid obesity) (HCC)] Onset: 08-25-2023 Chronic Other nutritional; endocrine; and metabolic disorders (1 source) Body mass index (BMI) 40.0-44.9, adult; Translations: [BMI 40.0-44.9, adult (HCC)] Onset: 08-25-2023 Chronic Other nutritional; endocrine; and metabolic disorders (2 sources) Morbid obesity; Translations: [Morbid (severe) obesity due to excess calories] Onset: 11-25-2023 11-25-2023 Chronic Other nutritional; endocrine; and metabolic disorders (2 sources) Body mass index 40+ - severely obese; Translations: [Body mass index (BMI) 40.0-44.9, adult] Onset: 11-25-2023 11-25-2023 Chronic Other screening for suspected conditions (not mental disorders or infectious disease) (14 sources) Ambulatory ECG abnormal; Translations: [Abnormal electrocardiogram [ECG] [EKG]] Onset: 07-10-2016 09-22-2023 Episodic Residual codes; unclassified (1 source) Genetic susceptibility to other disease; Translations: [MTHFR mutation] Onset: 08-25-2023 Episodic Residual codes; unclassified (4 sources) FH: Congenital heart disease; Translations: [Family history of other congenital malformations, deformations and chromosomal abnormalities] 09-22-2023 Episodic Residual codes; unclassified (3 sources) Family history of other congenital malformations, deformations and chromosomal abnormalities; Translations: [Family history of congenital anomalies] Onset: 09-29-2023 09-22-2023 Episodic Residual codes; unclassified (1 source) Menopause present; Translations: [Asymptomatic menopausal state] 08-04-2024 Episodic Residual codes; unclassified (1 source) Asymptomatic menopausal state; Translations: [Symptomatic menopausal or female climacteric states] 08-04-2024 Episodic Spondylosis; intervertebral disc disorders; other back problems (2 sources) Degeneration of thoracic intervertebral disc; Translations: [Other intervertebral disc degeneration, thoracic region] Onset: 10-15-2023 10-15-2023 Chronic Spondylosis; intervertebral disc disorders; other back problems (14 sources) Pain in thoracic spine; Translations: [Pain in thoracic spine] Onset: 10-15-2023 09-22-2023 Episodic Thyroid disorders (10 sources) Thyroid nodule; Translations: [Nontoxic single thyroid nodule] Onset: 08-14-2023 Chronic Past or Other Problems Problem Classification Problem Date Documented Date Episodic/Chronic Other and unspecified benign neoplasm (2 sources) Angiomyolipoma of kidney; Translations: [Benign lipomatous neoplasm of kidney] Onset: 07-29-1910-15-2023 Episodic Residual codes; unclassified (2 sources) Homozygous methylenetetrahydrofolate reductase mutation; Translations: [Genetic susceptibility to other disease] Onset: 05-01-2010-15-2023 Episodic Thyroid disorders (3 sources) Sick-euthyroid syndrome; Translations: [Sick-euthyroid syndrome] Onset: 10-21-1911-10-2023 Episodic Results Test Name Value Interpretation Reference Range Facility XR ANKLE 3+ VIEWS LEFTon XR ANKLE 3+ VIEWS LEFT Exam: XR - LT ANKLE COMPLETE MIN 3V Reason for exam: Medial and lateral ankle pain Prior comparative studies: None Findings: Talar dome appears intact. There is mild sclerosis and osteophyte formation in the tibiotalar joint and to a significant degree in the midfoot. No fracture, malalignment or subluxation is apparent. Osseous density is normal. Impression: 1. No acute osseous abnormality identified. 2. Degenerative changes in the ankle and midfoot. Electronically Signed Jayden Pino M.D. 2024-04-02 10:55:46 Normal Not Available Free T4 (Free Thyroxine)on 0 10-21-2023 Free T4 [Mass/Vol] 0.96 ng/dL Normal 0.61-1.12 [facility] Comment on above: Performed By: #### T 3R #### [facility] , #### T3T, TSH3, T4F, T3F #### [facility] [address] [place] [address] Thyroid Stimulating Hormoneo n 10-21-2023 TSH Qn 0.76 m[IU]/L Normal 0.45-5.33 [facility] Comment on above: Result Comment: PERF ORMED BY: [place] [address] PATHOLOGIST SUPERVISOR GLYCERIN VALERIO HOANG M.D. Performed By: #### T 3R #### [facility] , #### T3T, TSH3, T4F, T3F #### [facility] [address] [place] [address] Thyrotropin [Units/volume] i n Serum or PlasmaOrdered By: Cortes Gupta on 10-21-2023 TSH Qn 0.76 m[IU]/L 0.45-5.33 [facility] Thyroxine (T4) free [Mass/vo lume] in Serum or PlasmaOrdered By: Cortes Gupta on 10-21-2023 Free T4 [Mass/Vol] 0.96 ng/dL 0.61-1.12 [facility] Triiodothyronine (T3) Freeon 10-21-2023 Triiodothyronine (T3) Free 3.17 pg/mL Normal 2.50-3.90 [facility] Comment on above: Result Comment: PERF ORMED BY: [place] [address] PATHOLOGIST SUPERVISOR GLYCERIN VALERIO HOANG M.D. Performed By: #### T 3R #### [facility] , #### T3T, TSH3, T4F, T3F #### [facility] [address] [place] [address] Triiodothyronine (T3) Free [ Mass/volume] in Serum or PlasmaOrdered By: Cortes Gupta on 10-21-2023 Free T3 [Mass/Vol] 3.17 pg/mL 2.50-3.90 [facility] Triiodothyronine (T3) Revers jhonatan 10-21-2023 Triiodothyronine (T3) Reverse 21.4 ng/dL Normal 9.2-24.1 [facility] Comment on above: Result Comment: This test was developed and its performance characteristics determined by [facility]. It has not been cleared or approved by the Food and Drug Administration. Performed at: [address] [id number] News Library Director: Rolan Dubon MD, Phone: [phone] PERFORMED BY: [place] [address] PATHOLOGIST SUPERVISOR GLYCERIN VALERIO HOANG M.D. Performed By: #### T 3R #### [facility] , #### T3T, TSH3, T4F, T3F #### [facility] [address] [place], [place] [id number] [place] Triiodothyronine (T3) Totalo n 10-21-2023 Triiodothyronine (T3) Total 1.11 ng/mL Normal 0.87-1.78 [facility] Comment on above: Performed By: #### T 3R #### [facility] , #### T3T, TSH3, T4F, T3F #### [facility] [address] [id number] [facility] Triiodothyronine (T3) [Mass/ volume] in Serum or PlasmaOrdered By: Cortes Gupta on 10-21-2023 T3 [Mass/Vol] 1.11 ng/mL 0.87-1.78 [facility] echo transthoracicon [facility] echo transthoracic [facility] [address] [place] [address] [place] [address] Echocardiogram Signed Patient: Nakia Dooley MR#: [id number] 48 : 1970 Acct:[id number] Age/Sex: 53 / F ADM Date: 09/29/23 Loc: Room: Type: [facility] Attending Dr: LAMONT Arriaga APRN Ordering Provider: Zainab Morrell APRN, CNP Date of Service: 09/29/2307/23/1249 [facility] echo transthoracic: Z82.79 - Family history of other congenital malformations... Copies to: Karla Wild MD, FACC Zainab Morrell APRN, CNP Weight: 221 lb Performed By: Grazyna Telles RDCS BSA: 2.0 m2 BP: 118/81 mmHg HR: 70 Reason For Study: Palpitations. Family history of other congenital malformations. History: PVCs. Family history: ASD Repair. Interpretation Summary The left ventricular size, thickness and function are normal The left ventricular wall motion is normal. Ejection Fraction = 60-65%. A variety of Doppler measurements indicate impaired left ventricular relaxation, which is associated with grade I/IV or mild diastolic dysfunction. There is no prior echocardiogram noted for this patient. Procedure/Quality: A two-dimensional transthoracic echocardiogram with color flow and Doppler was performed. The study was technically good in quality. There is no prior echocardiogram noted for this patient. Left Ventricle: The left ventricular size, thickness and function are normal. Ejection Fraction = 60-65%. A variety of Doppler measurements indicate impaired left ventricular relaxation, which is associated with grade I/IV or mild diastolic dysfunction. The left ventricular wall motion is normal. Left Atrium: The left atrium appears normal in size. Right Atrium: The right atrium appears normal in size. Right Ventricle: The right ventricular size, thickness and function are normal. Aortic Valve: The aortic valve is normal in structure and function. No aortic regurgitation is present. Mitral Valve: The mitral valve is normal in structure and function. There is no mitral regurgitation noted. Tricuspid Valve: The tricuspid valve is normal in structure and function. No tricuspid regurgitation. Pulmonic Valve: The pulmonic valve is normal in structure and function. Arteries: The aortic root is normal size. Pericardium/Pleura: No pericardial effusion seen. There is no pleural effusion. IVC/Hepatic Veins: The inferior vena cava is normal in size, with a normal collapsibility index. Miscellaneous: No thrombus, vegetation or mass is seen. Measurements with Normals IVSd: 0.90 cm (0.7-1.1 cm)LVIDd: 4.7 cm (3.7-5.4 cm) LVPWd: 1.1 cm (0.7-1.1 cm)LVIDs: 3.0 cm (2.3-3.6 cm) LA dimension: 3.3 cm (2.3-4.0 cm)Ao root diam: 3.2 cm(2.0-3.6 cm) asc Aorta Diam: 3.2 cm(2.1-3.4cm) Doppler with Normals LV V1 max: 123.0 cm/sec (0.7-1.7m/s)MV E max chip: 78.8 cm/sec(0.8-1.3m/s) MV A max chip: 90.3 cm/sec(0.0-0.0m/s) MV E/A: 0.87 (<1.5) MMode/2D Measurements Calculations RVDd: 3.3 cm FS: 36.2 % Ao root area: LVOT diam: 2.0 cm TAPSE: 2.8 cm EDV(Teich): 7.9 cm2 LVOT area: 3.2 cm2 RV S Chip: 100.1 ml 21.8 cm/sec ESV(Teich): 34.1 ml EF(Teich): 65.9 % __ LVLd ap4: 8.1 cm SV(MOD-sp4): LAV(MOD-sp4): LA A2 area: 18.2 cm2 EDV(MOD-sp4): 67.9 ml 48.9 ml 105.0 ml LAV(MOD-sp2): LA A4 area: 19.1 cm2 LVLs ap4: 6.0 cm 47.1 ml LA length (vol): ESV(MOD-sp4): 6.0 cm 37.1 ml LA vol: 49.3 ml EF(MOD-sp4): 64.7 % LA vol index: 24.8 ml/m2 Doppler Measurements Calculations MV dec time: E/E' lat: 8.6 MV dec slope: Ao V2 max: 0.27 sec E/E' med: 10.8 171.9 cm/sec 295.3 cm/sec2 Ao max P.8 mmHg Ao mean P.7 mmHg Ao V2 mean: 122.2 cm/sec Ao V2 VTI: 32.6 cm NOELLE(I,D): 2.2 cm2 NOELLE(V,D): 2.3 cm2 __ LV V1 max PG: RAP systole: 6.1 mmHg 3.0 mmHg LV V1 mean P.3 mmHg LV V1 mean: 85.3 cm/sec LV V1 VTI: 23.0 cm Transcribed By: SCV Performed At: 09/29/23 1357 Signed By: Karla Wild MD, [facility] 09/29/23 1351 Normal [facility] 25(OH)D3 [facility] 2023 25-hydroxyvitamin D3 [Mass/Vol] 44.8 ng/mL Normal 31.0-80.[address] [facility] Comment on above: Order Comment: Speci men Type: BLOOD SPECIMEN Ordering Facility: [facility] Address: [address] [place] [address] Result Comment: Clas sification of 25 [place] Vitamin D status: Deficiency/Insufficiency: < or = 30 ng/ml. Sufficiency/Optimal Levels: 31-80 ng/mL Toxicity: > 100 ng/mL. Test performed by chemiluminescent immunoassay. Performed By: #### 1 989-3 #### [facility] CLIA [id number] [address] [place] [address] [facility] CNOVon 08-25-2023 CNOV Office Visit (FERNANDO ) NAKIA DOOLEY ([id number]) 1970 F Date Time Provider Department 08/25/23 11:00 AM ANGELA TRUONG During your visit today, we recorded the following information about you: Pulse Blood pressure Weight Height 64/minute 130/85 103 kg 1.575 m Angela Truong DO 08/25/2023 12:44 PM Signed [facility] SUBJECTIVE: Nakia Dooley is a 53 year old female with a PMH as listed below is a new patient who presents for a wellness consult. Consultation requested by self. Accompanied by , Jordi CC: anxiety, menopause HPI: Nakia just moved from [place] and is establishing care at [facility]. She states she doesn't feel [...] lbs. She was walking a lot in [place]. She had thinning hair and hair loss. TSH 0.89 in 2021. She had a thyroid US a couple weeks ago that showed thyroid nodules. Had brain MRI in [place] in 2022 for headaches, pulsating noise in [...] left lobe. FNA scheduled on 09/29 in [place]. Brain MRI 07/13/22 - normal Labs 08/01/23 [...] Florastor prn SOCIAL HISTORY: Home: lives in [place], [place] with and 2 kids (10, 13 [...] kg/m? General: (more content not included)... Normal [facility] CRP SerPl HS-mCncon 08-25-19 24 CRP High sensitivity method [Mass/Vol] 5.7 mg/L High <3.[address] [facility] Comment on above: Order Comment: Speci men Type: BLOOD SPECIMEN Ordering Facility: [facility] Address: [address] [place] [address] Result Comment: hsCR P < 1.0 mg/L, relative risk is low hsCRP 1.0-3.0 mg/L, relative risk is average hsCRP > 3.0 mg/L, relative risk is high Reference: Cora TA, Ariana GA, Diomedes RW, et al. Markers of Inflammation and Cardiovascular Disease. Application to Clinical and Public Health Practice. A Statement for Healthcare Professionals from the Centers for Disease Control and Prevention and the [place] [employer]. Circulation 2003;107:499-511. Performed By: #### 3 051-0, 3024-7, 58809-6 #### [facility] CLIA [id number] [address] [place] [address] [place] Folate SerPl-mCncon 08-25-19 24 Folate [Mass/Vol] 17.2 ng/mL Normal >4.7 [facility] Comment on above: Order Comment: Speci men Type: BLOOD SPECIMEN Ordering Facility: [facility] Address: [address] [place] [address] Performed By: #### T JOE #### [facility] CL[facility] [id number] [address] [place] [address] Hcys SerPl-sCncon 08-25-2023 Homocysteine [Moles/Vol] 8.6 umol/L Normal <15.[address] [facility] Comment on above: Order Comment: Speci men Type: BLOOD SPECIMEN Ordering Facility: [facility] Address: [address] [place] [address] Performed By: #### 1 3965-9 #### [facility] CLIA [id number] [address] [place] [address] [place] Insulin SerPl-aCncon 024 Insulin Qn 14.8 u[IU]/mL Normal 3.0-25.[address] [facility] Comment on above: Order Comment: Speci men Type: BLOOD SPECIMEN Ordering Facility: [facility] Address: [address] [place] [address] Performed By: #### T MAO #### [facility] CLIA [id number] [address] [place] [address] Methylmalonate SerPl-sCncon 08-25-2023 Methylmalonate [Moles/Vol] 0.10 umol/L Normal <=0.[address] [facility] Comment on above: Order Comment: Speci men Type: BLOOD SPECIMEN Ordering Facility: [facility] Address: [address] [place] [address] Result Comment: This test was developed and its performance characteristics determined by [facility]'s Rick JAdrienne [facility] Pathology and Laboratory Medicine [place] ([facility]). It has not been cleared or approved by the FDA. [facility] is regulated under CLIA as qualified to perform high-complexity testing. This test is used for clinical purposes. It should not be regarded as investigational or for research. Performed By: #### 1 3964-2 #### [facility] CLIA [id number] [address] [place] [address] [place] [address] [place] OMEGACHECKon 08-25-2023 ARACHIDONIC ACID 11.6 % by wt Normal 8.6-15.6 [facility] Comment on above: Order Comment: Speci men Type: BLOOD SPECIMEN Ordering Facility: [facility] Address: [address] [place] [address] Performed By: #### O MEGAC #### [facility] CLIA [id number] [address] [place] [address] ARACHIDONIC ACID/EPA RATIO 22.3 Normal 3.7-40.[address] [facility] Comment on above: Order Comment: Speci men Type: BLOOD SPECIMEN Ordering Facility: [facility] Address: [address] [place] [address] Result Comment: Rece ived Date: Performed By: #### O MEGAC #### [facility] CLIA [id number] [address] [place] [address] DHA 2.3 % by wt Normal 1.4-5.[address] [facility] Comment on above: Order Comment: Speci men Type: BLOOD SPECIMEN Ordering Facility: [facility] Address: [address], [place] [address] Performed By: #### O MEGAC #### [facility] CLIA [id number] [address] [place] [address] DPA 0.9 % by wt Normal 0.8-1.[address] [facility] Comment on above: Order Comment: Speci men Type: BLOOD SPECIMEN Ordering Facility: [facility] Address: [address] [place] [address] Performed By: #### O MEGAC #### [facility] CLIA [id number] [address] [place] [address] EPA 0.5 % by wt Normal 0.2-2.[address] [facility] Comment on above: Order Comment: Speci men Type: BLOOD SPECIMEN Ordering Facility: [facility] Address: [address] [place] [address] Performed By: #### O MEGAC #### [facility] CLIA [id number] [address] [place] [address] LINOLEIC ACID 27.4 % by wt Normal 18.6-29.[address] [facility] Comment on above: Order Comment: Speci men Type: BLOOD SPECIMEN Ordering Facility: [facility] Address: [address] [place] [address] Performed By: #### O MEGAC #### [facility] CLIA [id number] [address] [place] [address] OMEGA-3 TOTAL 3.7 % by wt Normal [facility] Comment on above: Order Comment: Speci men Type: BLOOD SPECIMEN Ordering Facility: [facility] Address: [address] [place], [place] [id number] Performed By: #### O MEGAC #### [facility] CLIA [id number] [address] [place] [address] 41933 OMEGA-6 TOTAL 41.8 % by wt Normal [facility] Comment on above: Order Comment: Speci men Type: BLOOD SPECIMEN Ordering Facility: [facility] Address: [address] [place], [place] [id number] Result Comment: [facility] measures a number of omega-6 fatty acids with AA and LA being the two most abundant forms reported. Performed By: #### O MEGAC #### [facility] CLIA [id number] [address] [place] [address] 51030 OMEGA-6/OMEGA-3 RATIO 11.2 Normal 3.7-14.4 [facility] Comment on above: Order Comment: Speci men Type: BLOOD SPECIMEN Ordering Facility: [facility] Address: [address] [place] [address] Performed By: #### O MEGAC #### [facility] CLIA [id number] [address] [place] [address] OMEGACHECK 3.7 % by wt Low >5.[address] [facility] Comment on above: Order Comment: Speci men Type: BLOOD SPECIMEN Ordering Facility: [facility] Address: [address] [place] [address] Result Comment: Incr easing blood levels of long-chain n-3 fatty acids are associated with a lower risk of sudden cardiac (1). Based on the top (75th percentile) and bottom (25th percentile) quartiles of the [facility] reference population, the following relative risk [...] within 2 to 3 weeks. (Reference: 1-Ric et al. NEJ. 2002; 346: 0210-7226).This test was developed and its analytical performance characteristics have been determined by [facility]. It has not been cleared or approved by the U.S. Food and Drug Administration. This assay has been validated pursuant to the CLIA regulations and is used for clinical purposes. Performed By: #### O MEGAC #### [facility] CLIA [id number] [address] [place] [id number] T3Free SerPl-mCncon 08-25-19 24 Free T3 [Mass/Vol] 3.1 pg/mL Normal 2.3-4.1 [facility] Comment on above: Order Comment: Earlene arriola Type: BLOOD SPECIMEN Ordering Facility: [facility] Address: [address] [place] [address] Performed By: #### 3 051-0, 3027, 89629-0 #### [facility] CLIA [id number] [address] [place] [address] [place] T4 Free SerPl-mCncon 024 Free T4 [Mass/Vol] 1.4 ng/dL Normal 0.9-1.7 [facility] Comment on above: Order Comment: Uniquei men Type: BLOOD SPECIMEN Ordering Facility: [facility] Address: [address] [place] [address] Performed By: #### 3 051-0, 3027, 89108-3 #### [facility] CLIA [id number] [address] [place] [address] [place] TMAOon 08-25-2023 TMAO 2.3 uM Normal <6.[address] [facility] Comment on above: Order Comment: Earlene arriola Type: BLOOD SPECIMEN Ordering Facility: [facility] Address: [address] [place] [address] Result Comment: Base d on a population (A=5830) defined as ambulatory stable patients without acute [...] those above the upper limit of the [facility] 95% population interval (>=10.0 uM) are defined as high relative risk for a cardiovascular event relative to those with TMAO <6.2 uM. (References: 1-Randy motley al. N Engl J Med. 2013; 368:9758-6304. 2-Payton Manrique et al. J Am Heart Assoc. 2017;6(7)).This test was developed and its analytical performance characteristics have been determined by [facility]. It has not been cleared or approved by the U.S. Food and Drug Administration. This assay has been validated pursuant to the CLIA regulations and is used for clinical purposes. Received Date: Performed By: ###Jeanine DIAZ #### [facility] CLIA [id number] [address] [place], [place] [id number] TSH SerPl-aCncon 08-25-2023 TSH Qn 1.080 m[IU]/L Normal 0.270-4.[address] [facility] Comment on above: Order Comment: Speci men Type: BLOOD SPECIMEN Ordering Facility: [facility] Address: [address] [place] [address] Performed By: #### 3 016-3 #### [facility] CLIA [id number] [address] [id number] [place] Vit B12 SerPl-mCncon 024 Cobalamin (Vitamin B12) [Mass/Vol] 690 pg/mL Normal 232-[address] [facility] Comment on above: Order Comment: Speci men Type: BLOOD SPECIMEN Ordering Facility: [facility] Address: [address] [place] [address] Performed By: ###Jeanine DIAZ #### [facility] CLIA [id number] [address] [place] [address] US thyroidon 08-14-2023 thyroid [facility] [address] [address] Ultrasound Report Signed Patient: Nakia Dooley MR#: [id number] 49 : 1970 Acct:[id number] Age/Sex: 53 / F ADM Date: 08/14/23 Loc: Room: Type: [facility] Attending Dr: LAMONT Arriaga APRN Ordering Provider: Zainab Morrell APRN, CNP Date of Service: 08/14/23 US/US thyroid: Thyroid nodule Copies to: Zainab Mrorell APRN, CNP Thyroid ultrasound Reason for exam: [...] Castro Jr., D.O.08/14/2023 3:57 PM Dictation Location: [place] [address] Tech: Zainab Deandre Transcribed By: CHANELL 08/14/23 1557 Dictated By: Zelalem Castro Jr, DO 08/14/23 1556 Signed By: 08/14/23 1557 Normal [facility] Vital Signs Date Time Vital Sign Value Performing Clinician Faci [facility] 08-04-2024 13:01-0500 Body height 157.48 cm [facility] 08-04-2024 13:01-0500 Body mass index (BMI) [Ratio] 44.5 kg/m2 [facility] 08-04-2024 13:01-0500 Body temperature 97 [degF] [facility] 08-04-2024 13:01-0500 Body weight 110.44 kg [facility] 08-04-2024 13:01-0500 Diastolic blood pressure 80 mm[Hg] [facility] 08-04-2024 13:01-0500 Heart rate 104 /min [facility] 08-04-2024 13:01-0500 SaO2% (BldA) [Mass fraction] 96 % [facility] 08-04-2024 13:01-0500 Systolic blood pressure 124 mm[Hg] [facility] 03-26-2024 10:31-0400 Body height 157.48 cm [facility] 03-26-2024 10:31-0400 Body mass index (BMI) [Ratio] 41.2 kg/m2 [facility] 03-26-2024 10:31-0400 Body temperature 98.8 [degF] [facility] 03-26-2024 10:31-0400 Body weight 102.28 kg [facility] 03-26-2024 10:31-0400 Diastolic blood pressure 76 mm[Hg] [facility] 03-26-2024 10:31-0400 SaO2% (BldA) [Mass fraction] 98 % [facility] 03-26-2024 10:31-0400 Systolic blood pressure 124 mm[Hg] [facility] 09-22-2023 14:59-0400 Body height 157.48 cm NORMA Morrell Work Phone: [facility] 09-22-2023 14:59-0400 Body mass index (BMI) [Ratio] 40.9 kg/m2 NORMA Morrell Work Phone: [facility] 09-22-2023 14:59-0400 Body weight 101.6 kg NORMA Morrell Work Phone: [facility] 09-22-2023 14:59-0400 Diastolic blood pressure 88 mm[Hg] NORMA Morrell Work Phone: [facility] 09-22-2023 14:59-0400 Heart rate 91 /min NORMA Morrell Work Phone: [facility] 09-22-2023 14:59-0400 SaO2% (BldA) [Mass fraction] 98 % FILAMENT WELDERMarlee Lamb Christianacher Work Phone: [facility] 09-22-2023 14:59-0400 Systolic blood pressure 146 mm[Hg] FILAMENT WELDERMarlee MesaZainab Anarbacher Work Phone: [facility] 07-30-2023 15:30-0500 Body height 157.48 cm FILAMENT WELDERMarlee Lamb Anarbacher Work Phone: [facility] 07-30-2023 15:30-0500 Body weight 104.32 kg FILAMENT WELDERMarlee Lamb Christianacher Work Phone: [facility] 07-30-2023 15:30-0500 Diastolic blood pressure 90 mm[Hg] FILAMENT WELDER Zainab Christianacher Work Phone: [facility] 07-30-2023 15:30-0500 Systolic blood pressure 144 mm[Hg] FILAMENT WELDERMarlee Lamb Anarbacher Work Phone: [facility] Encounters Encounter Date Encounter Type Care Provider Facility Start: 08-04-2024 End: 08-04-2024 ambulatory [facility] Work Phone: Start: 08-04-2024 End: 08-04-2024 [facility] Work [facility]: Start: 07-19-2024 End: 07-19-2024 Office outpatient new 30 minutes Kaden CHAPA Work Phone: [facility] Comment on above: Bilateral hand pain (Primary Dx); Carpal tunnel syndrome on both sides; Paresthesia of hand, bilateral; Arm weakness; Numbness; Arm pain, right; Arm pain, left Start: 07-19-2024 End: 07-19-2024 ambulatory KADEN MISHRA Not Available Start: 04-02-2024 End: 04-02-2024 ambulatory ZAINAB MORRELL Not Available Start: 03-26-[address] [facility] Start: 03-26-2024 End: 03-26-2024 ambulatory [facility] Work Phone: Start: 03-26-2024 End: 03-26-2024 Encounter for general adult medical examination without abnormal findings [facility] Start: 03-26-2024 End: 03-26-2024 Patient encounter procedure [facility] Work Phone: Start: 01-26-2024 End: 01-26-2024 ambulatory EDWARD J HEMEYER Not Available Start: 01-05-2024 End: 01-05-2024 ambulatory EDWARD J HEMEYER Not Available Start: 11-25-2023 End: 11-25-2023 ambulatory EDWARD J HEMEYER Not Available Start: 11-17-2023 End: 11-17-2023 ambulatory EDWARD J HEMEYER Not Available Start: 10-21-2023 End: 10-21-2023 ambulatory Edward J Hemeyer Facility:[facility] Start: 10-21-2023 End: 10-21-2023 ambulatory NORMA Morrell Work Phone: [facility] Work Phone: Start: 10-21-2023 End: 10-21-2023 Patient encounter procedure NORMA Morrell Work Phone: [facility] Start: 10-15-2023 End: 10-15-2023 ambulatory EDWARD J HEMEYER Not Available Start: 09-29-2023 End: 09-29-2023 ambulatory Zainab Morrell Facility:[facility] Start: 09-29-2023 End: 09-29-2023 ambulatory FILAMENT WELDERMarlee Morrell Work Phone: [facility] Work Phone: Start: 09-29-2023 End: 09-29-2023 Patient encounter procedure FILAMENT WELDERMarlee Morrell Work Phone: [facility] Work Phone: Start: 09-22-2023 End: 09-22-2023 Patient encounter procedure FILAMENT WELDERMarlee Morrell Work Phone: [facility] Work Phone: Start: 09-10-2023 ambulatory Angela Truong DO Work Phone: [facility] Comment on above: Magnesium RBC Start: 08-25-2023 End: 08-26-2023 ambulatory ANGELA TRUONG Facility:[facility] Start: 08-14-2023 End: 08-14-2023 ambulatory Zainab Morrell Facility:[facility] Start: 08-14-2023 End: 08-14-2023 ambulatory NORMA Morrell Work Phone: [facility] Work Phone: Start: 08-14-2023 End: 08-14-2023 Patient encounter procedure FILAMENT WELDERMarlee Morrell Work Phone: [facility] [place] Work Phone: Start: 08-08-2023 End: 08-08-2023 ambulatory Zainab Morrell Other [facility] Other Start: 08-08-2023 Telephone encounter Zainab Burch her [facility] Start: 08-04-2023 End: 08-04-2023 ambulatory Zainab Morrell Other [facility] Other Start: 08-04-2023 Telephone encounter Zainab Marcin her [facility] Start: 07-30-2023 End: 07-30-2023 Patient encounter procedure NORMA Morrell Work Phone: [facility]- Procedures Date Procedure Procedure Detail Performing Clinician Start: 08-14-2023 US scan of thyroid FILAMENT WELDERMarlee Morrell Work Phone: Start: 04-30-2021 Colonoscopy Kaden CHAPA Work Phone: Plan of Treatment Date Care Activity Detail Author Start: 04-30-2031 Screening for malign ant neoplasm of colon [facility] Start: 04-02-2027 Screening for malign ant neoplasm of colon FIT-DNA [facility] Start: 08-11-2024 End: 08-11-2024 Patient encounter procedure 08/11/2024 9:15 AM EST Office Visit [facility] [address] [place] [address] Jr. Pj Tejada, DO [address] [place] [address] [facility] Start: 07-19-2024 End: 07-19-2025 EMG AND NERVE CONDUCTION STUDY EMG AND NERVE CONDUCTION STUDY Neurology Routine Arm weakness Numbness Arm pain, right Arm pain, left Expected: 07/19/2024 (Approximate), Expires: 07/19/2025 [facility] Work Phone: Comment on above: Expected: 07/19/2024 (Approximate), Expires: 07/19/2025 Start: 02-29-2024 Influenza vaccination Influenza Vacc ine (#1) [facility] Start: 10-21-[address] [facility] Start: 06-30-2023 Depression Assessment Depression Ass essment [facility] Start: 02-28-2023 Covid-19 Vaccine ( season) Covid-19 Vaccine ( season) [facility] Start: 02-28-2023 Influenza vaccination Influenza Vacc ine (#1) [facility] Start: 2021 Shingrix Vaccine (1 of 2) Shingrix Vaccine (1 of 2) [facility] Start: 2016 Diabetes Screening Diabetes Screenin g [facility] Start: 2016 Lipid panel Lipid Screening [facility] Start: 2016 Screening for malign ant neoplasm of colon [facility] Start: 2011 Screening for malign ant neoplasm of breast [facility] Start: 2001 Screening for malign ant neoplasm of cervix [facility] Start: 1992 Screening for malign ant neoplasm of cervix [facility] Start: 1990 Hepatitis B Vaccine (1 of 3 - 19+ 3-dose series) Hepatitis B Vaccine (1 of 3 - 19+ 3-dose series) [facility] Start: 1990 Urine microalbumin profile DTaP,Tdap,Td Vaccine (1 - Tdap) [facility] Start: 1990 Urine screening for protein Diabetes: Urine Protein Screening [facility] Start: 1989 Hepatitis C screening Hepatitis C Sc reening [facility] Start: 1989 HIV screening HIV Screening [facility] Start: 1981 Glaucoma screening Diabetes: R etinopathy Screening [facility] Start: 1971 Hemoglobin A1c measurement Diabetes: Hemoglobin A1C [facility] Start: 1971 Screening for malign ant neoplasm of colon [facility] Estradiol (E2) [Mass/volume] in Serum or Plasma [facility] Estrone (E1) [Mass/volume] in Serum or Plasma [facility] Magnesium [Mass/volu me] in Red Blood Cells [facility] XR Ankle - left GE [address] [facility] XR Cervical spine [address] [facility] XR Thoracic spine 3 Views [facility] Immunizations Immunization Date Immunization Notes Care Provider [facility] 07-10-2016 influenza, seasonal, injectable, preservative free Kaden CHAPA Work Phone: [facility] 07-10-2016 influenza virus vacc ine, unspecified formulation Angela Truong DO Work Phone: [facility] Payers Date Payer Category Payer Self-pay 2018 [facility] er [id number] 2018 Unknown ANTHEM ANTHEM BC BS FEP PPO [id number] 2018-Present [phone] [address] [place] [address] PPO [id number] 2018 [employer] Blue Shield [id number] 1970 Unknown [id number] [id number]. 2.9 1970 Unknown [id number] [id number]. 2.1258 1971 Unknown [id number] 2.16.840.1.484551.3.579. 2.1259 1971 Unknown [id number] 2.16.840.1.826884.3.579. 2.1258 1971 Unknown [id number] 2.16.840.1.582383.3.579. 2.9 1971 Unknown [id number] 2.16.840.1.977295.3.579. 2.1258 1971 Unknown [id number] 2.16.840.1.872475.3.579. 2.1259 1971 Unknown [id number] 2.16.840.1.789608.3.579. 2.9 1971 Unknown [id number] 2.16.840.1.235589.3.579. 2.1259 Unknown [id number] 2.16.840.1.814725.3.579. 2.531 Unknown [id number] 2.16.840.1.159623.3.579. 2.531 Unknown [id number] [id number]. 2.531 Social History Date Type Detail Facility Start: 08-25-2023 End: 11-18-2023 [facility] Start: 1970 Sex Assigned At Female [facility] Tobacco smoking stat us NMIS Tobacco smoking consumption unknown [facility] Start: 08-25-2023 End: 11-18-2023 History of Social function [facility] National Score (1-10 0), lower number is lower risk 53 [facility] Start: 1970 Sex Assigned At Not on file [facility] Start: 09-22-2023 End: 03-25-2024 Tobacco smoking status NHIS Never smoked tobacco (finding) [facility] Start: 10-15-2023 Tobacco use and exposure Smokeless tobacco non-user [facility] Start: 07-19-2024 Alcoholic beverage intake Lifetime non-drinker (finding) [facility] Do you belong to any clubs or organizations such as religion groups, unions, fraternal or athletic groups, or school groups? No [facility] Are you now , , , , never or living with a partner? [facility] How often to you hav e a drink containing alcohol? Never [facility] Do you feel stress - tense, restless, nervous, or anxious, or unable to sleep at night because your mind is troubled all the time - these days [OSQ] Very much [facility] (I/We) worried wheth er (my/our) food would run out before (I/we) got money to buy more. Never true [facility] Start: 08-04-2024 Sex Female (finding) [facility] Clinical Notes 08-08-2023 to 07-19-2024 SAMMI Cano - 07/19/2024 1:00 PM EST Note Date & Type Note Facility 07-19-2024 History of Present illness Narrative Images from the original note were not included. NAME: Nakia Dooley : 1970 HISTORY OF PRESENT ILLNESS: NEW PT Nakia Dooley is an 54 y.o. @ female. (NEW PT) - NOTES B/L HAND PAIN / N/T, L>R ~ 2 WKS NO XRAYS NO MRI NO EMG NOTES PAIN, N/T B/L, IN THE AM THAT EASES THROUGHOUT THE DAY BUT STILL CONSTANT. SX'S THE SAME IN B/L HANDS, MORE SEVERE IN LT. 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 GOOD ROM IN FINGERS. STIFFNESS. USED TO WEAR COCKUP WRIST SPLINT, NOW NEOPRENE WRAPS HS AND WHEN DRIVING. HEATING - SOME RELIEF. TYL ARTHRITIS PRN. History of Present Illness The patient presents for evaluation of bilateral hand pain. She reports experiencing pain and paresthesias in both hands, predominantly in the morning hours. These symptoms also manifest during activities such as driving and light manual tasks. She expresses concern about a potential correlation between her hand symptoms and previous cervical spasms. An MRI was recommended at that time, but she did not pursue it as her symptoms improved with pool exercises. PAST MEDICAL HISTORY: History reviewed. No pertinent past medical history. PAST SURGICAL HISTORY: Past Surgical History: Procedure Laterality Date SECTION, CLASSIC 2010 SECTION, LOW TRANSVERSE 2013 CHOLECYSTECTOMY 2020 SOCIAL HISTORY: Social History Occupational History Not on file Tobacco Use Smoking status: Never Smokeless tobacco: Never Vaping Use Vaping status: Never Used Substance and Sexual Activity Alcohol use: Never Drug use: Never Sexual activity: Not on file ALLERGIES: No Known Allergies HOME MEDICATIONS: Current Outpatient Medications Medication Instructions Ascorbic Acid (vitamin C) 1000 MG tablet 1-2 tablets, Oral, Daily fish oil-omega-3 fatty acids 2 g, Oral, Daily Probiotic Product (Daily Probiotic) capsule Essential-Biotics Complete (probiotic) as directed VITAMIN D-VITAMIN K PO Oral REVIEW OF SYSTEMS: Review of Systems Vitals: There is no height or weight on file to calculate BMI. Tobacco Use: Low Risk (07/19/2024) Patient History Smoking Tobacco Use: Never Smokeless Tobacco Use: Never Passive Exposure: Not on file Alcohol Use: Not At Risk (11/18/2023) AUDIT-C Frequency of Alcohol Consumption: Never Average Number of Drinks: Patient does not drink Frequency of Binge Drinking: Never PHYSICAL EXAM: Hand/Wrist Musculoskeletal Exam Inspection Right Erythema: none Ecchymosis: none Edema: none Deformity: none Left Erythema: none Ecchymosis: none Edema: none Deformity: none Inspection additional comments: No significant atrophy Palpation Right Right hand palpation is normal. Wrist tenderness to palpation: carpal canal Left Left hand palpation is normal. Wrist tenderness to palpation: carpal canal Palpation additional comments: DENIES PAIN TO PALPATION OF HAND/ WRIST JOINT Range of Motion Right Hand Right hand range of motion is normal. Left Hand Left hand range of motion is normal. Range of motion additional comments: ABLE TO MAKE FULL FIST Strength Right Hand Right hand strength is normal. Left Hand Left hand strength is normal. Strength additional comments: 5/5 EQUAL TRAINING CONSULTANT STRENGTH Neurovascular Right Right neurovascular exam is normal. Radial pulse: normal and 2+ Capillary refill: <3 sec Ulnar nerve sensory distribution: normal Median nerve sensory distribution: decreased Superficial radial nerve sensory distribution: normal Left Radial pulse: normal and 2+ Capillary refill: <3 sec Ulnar nerve sensory distribution: normal Median nerve sensory distribution: decreased Superficial radial nerve sensory distribution: normal Special Tests Right Phalen's: positive Tinel's - carpal tunnel: positive Left Phalen's: positive Tinel's - carpal tunnel: positive General Constitutional: appears stated age Labored breathing: no Neurological: alert and oriented x3 Skin: intact Lymphadenopathy: none Physical Exam IMAGING: Results Procedures Orders Placed This Encounter Procedures EMG AND NERVE CONDUCTION STUDY Standing Status: Future Standing Expiration Date: 07/19/2025 Scheduling Instructions: Schedule with Dr. Wicho Bains BILATERAL UE, PLEASE CALL PT TO SCHEDULE ASSESSMENT: ICD-10-CM 1. Bilateral hand pain M79.641 M79.642 2. Carpal tunnel syndrome on both sides G56.03 3. Paresthesia of hand, bilateral R20.2 4. Arm weakness R29.898 EMG AND NERVE CONDUCTION STUDY CANCELED: EMG AND NERVE CONDUCTION STUDY 5. Numbness R20.0 EMG AND NERVE CONDUCTION STUDY CANCELED: EMG AND NERVE CONDUCTION STUDY 6. Arm pain, right M79.601 EMG AND NERVE CONDUCTION STUDY CANCELED: EMG AND NERVE CONDUCTION STUDY 7. Arm pain, left M79.602 EMG AND NERVE CONDUCTION STUDY CANCELED: EMG AND NERVE CONDUCTION STUDY F/U Dr. Tejada s/p Bilateral UE EMG to discuss need for possible: Carpal tunnel release: Left then right Surgical and non surgical tx options discussed with conservative measures reviewed. Recommend ICE/ ELEVATION, continued activity modification in interim. Pt would consider surgical intervention to possibly improve symptoms. Assessment & Plan 1. Bilateral hand pain. She reports pain and paresthesias, mostly in the morning, but also present during driving and light activities. There is no joint swelling or erythema. Her history suggests carpal tunnel syndrome. She also has concerns about a possible link to her neck due to previous cervical spasms and was previously recommended for an MRI but did not follow through as symptoms improved with pool exercises. Given the duration and worsening of symptoms since moving back to [place], surgical intervention for carpal tunnel release is recommended. Night splinting and potential injections were discussed as other conservative measures. An EMG of the bilateral upper extremities is recommended to further evaluate for likely carpal tunnel syndrome. Questions answered in laymen terms at the bedside. The diagnosis, home exercise plan and any ongoing restrictions/ recommendations reviewed. If unable to be reached in office, I recommend evaluation at nearest Emergency Room if any symptoms worsened or new symptoms develop for requiring urgent evaluation. documented in this encounter [facility] 08-25-2023 Note HNO ID: [id number] Author: ANGELA TRUONG, DO Service: ? Author Type: Physician Type: Progress Notes Filed: 08/25/2023 12:44 Note Text: [facility] SUBJECTIVE: Nakia Dooley is a 53 year old female with a PMH as listed below is a new patient who presents for a wellness consult. Consultation requested by self. Accompanied by , Jordi CC: anxiety, menopause HPI: Nakia just moved from [place] and is establishing care at [facility]. She states she doesn't feel [...] lbs. She was walking a lot in [place]. She had thinning hair and hair loss. TSH 0.89 in 2021. She had a thyroid US a couple weeks ago that showed thyroid nodules. Had brain MRI in [place] in 2022 for headaches, pulsating noise in [...] left lobe. FNA scheduled on 09/29 in [place]. Brain MRI 07/13/22 - normal Labs 08/01/23 [...] Florastor prn SOCIAL HISTORY: Home: lives in [place], [place] with and 2 kids (10, 13 [...] PLAN: Nakia Kruse (more content not included)... [facility] 08-08-2023 Evaluation note Encounter Date Diagnosis Assessment Notes Jul, Thyroid nodule (ICD-10 - E04.1) [facility] Other [facility] Other Evaluation noteNo assessment information available [facility] Work Phone: Evaluation note* Diagnosis Onset Date Resolution Status Abnormal Holter monitor finding acute Family history of congenital heart defect acute Neck pain acute PVC (premature ventricular contraction) acute Thoracic spine pain acute [facility] Work Phone: Evaluation note* Diagnosis Onset Date Resolution Status Anxiety acute Hyperlipidemia acute Left ankle pain acute Screening for colon cancer a evelyne [id number] acute Wellness examination acute [facility] Work Phone: Evaluation note* Diagnosis Bilateral hand pain- Primary Carpal tunnel syndrome on both sides Carpal tunnel syndrome Paresthesia of hand, bilateral Arm weakness Other musculoskeletal symptoms referable to limbs Numbness Disturbance of skin sensation Arm pain, right Pain in soft tissues of limb Arm pain, left Pain in soft tissues of limb documented in this encounter [facility] Diagnosis Onset Date Resolution Status Admit Date Fatigue acute August 04, 2024 12:58pm Menopause acute August 04, 2024 12:58pm Vitamin B 12 deficiency acute F ebruary 2024 12:58pm Vitamin D deficiency acute Febr uary 2024 12:58pm [facility] Work Phone: History general Narrative - Reported* Type Description Date Medical History Diabetes Surgical History Exploratory Laporoscopy Surgical History x2 Surgical History Cholecystectomy [address] [facility] Other Hospital Discharge instructionsAmbulatory Orders* AMB Cologuard Time Frame: 03/26/24, Location: Determined By Patient [facility] Work Phone: Chief Complaint and Reason for Visit Chief Complaint Establish E04.1 Chief Complaint Establish E04.1 follow up on heart monitor Z82.79 Reason for Visit Abnormal Holter avis tor finding Family history of congenital heart defect Neck pain PVC (premature ventricular contraction) Thoracic spine pain Chief Complaint Establish E04.1 follow up on heart monitor Z82.79 E07.81 R53.82 Reason for Visit Abnormal Holter avis tor finding Family history of congenital heart defect Neck pain PVC (premature ventricular contraction) Thoracic spine pain Chief Complaint wellness/ankle Reason for Visit Anxiety Hyperlipidemia Left ankle pain Screening for colon cancer [id number] Wellness examination Chief Complaint Admit Date discuss some labs August 04, 2024 1 2:58pm Reason for Visit Admit Date Fatigue August 04, 2024 1 2:58pm Menopause August 04, 2024 1 2:58pm Vitamin B 12 deficiency August 04 12:58pm Vitamin D deficiency August 04, 2024 12:58pm Family History Relationship Condition Age at Onset Recorded Date/T franck grandparent Heart disease Unknown grandparent Type 1 diabetes mellitus Unknown Not Specified Family history of other condition Unknow n Relationship Condition Age at Onset Recorded Date/T franck grandparent Heart disease Unknown grandparent Type 1 diabetes mellitus Unknown mother Family history of other condition Unknown Advance Directives Advance Directive Response Recorded Date/ Time Advance Directives No July 4:18pm Advance Directive Response Recorded Date/ Time Advance Directives No July 5:18pm Advance Directive Response Recorded Date/ Time Advance Directives No February 12:17pm Advance Directive Response Recorded Date/ Time Advance Directives No February 11:17am Summary Purpose Additional Source Comments REASON FOR VISIT (unrecogniz ed section and content) Reason Comments Pain Care Teams (unrecognized sec tion and content) Team Status: Active Member Role Status Dates Zainab Morrell APRN CAPTAIN WAITER/WAITRESS-C Primary Care Provider Active Team Status: Inactive Member Role Status Dates Zainab Morrell APRN CAPTAIN WAITER/WAITRESS-Diony Attending Provider Act ar Start: July 30, 2023 End: July 30, 2023 Team Status: Inactive Member Role Status Dates Zainab Morrell APRN NP-C Primary Care Provider, Attending Provider Active Start: August 14, 2023 End: August 14, 2023 Team Status: Inactive Member Role Status Dates Zainab Morrell APRN CAPTAIN WAITER/WAITRESS-C Primary Care Provider, Attending Provider Active Start: September 22, 2023 End: September 22, 2023 Team Status: Inactive Member Role Status Dates Zainab Morrell APRN CAPTAIN WAITER/WAITRESS-C Primary Care Provider, Attending Provider Active Start: September 29, 2023 End: September 29, 2023 Team Status: Inactive Member Role Status Dates Zainab Morrell APRN CAPTAIN WAITER/WAITRESS-C Primary Care Provider Active Start: October 21, 2023 End: October 21, 2023 Cortes Gupta MD Attending Provider Active Start: October 21, 2023 End: October 21, 2023 Team Status: Inactive Member Role Status Dates Zainab Morrell APRN CAPTAIN WAITER/WAITRESS-C Primary Care Provider, Attending Provider Active Start: March 26, 2024 End: March 26, 2024 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 Start Date End Date Zainab Morrell NP PCP - General Family Medicine 09/16/23 Cortes Gupta MD [address] [place] [id number] PCP - [place] [employer] 12/29/23 Team Status: Inactive Member Role Status Dates Zainab Morrell APRN CAPTAIN WAITER/WAITRESS-C Primary Care Provider, Attending Provider Active Start: August 04, 2024 End: August 04, 2024 Goals (unrecognized section and content) Goals may be documented in a n alternate section INFORMATION SOURCE (unrecogn ized section and content) DATE CREATED AUTHOR 09/02/[address] [facility] DATE CREATED AUTHOR AUTHOR'S ORGANIZ ATION 10/28/2023 [facility] DATE CREATED AUTHOR AUTHOR'S ORGANIZ ATION 07/20/2024 [facility] EPIC Source Comments (unrecognize d section and content) In the event this informatio n is protected by the Federal Confidentiality of Alcohol and Drug Abuse Patient Records regulations: The Federal rules restrict any use of the information to criminally investigate or prosecute any alcohol or drug abuse patient.[facility] FOR RECORDS PERTAINING TO PATIENTS WHO [...] BE BASED ON THE PRIMARY CLINICAL RECORDS. [facility] [employer] [facility]. provides no warranty or guarantee of the accuracy or completeness of information in this document.
== END 2024-08-10 10:24 | disposition home or self-care (01) ==
LOC: MAMMO 10:23
PROVIDERS: PCP Nurse Practitioner Family; Visit Provider Nurse Practitioner Family
DX: Z12.31 Encounter for screening mammogram for malignant neoplasm of breast (principal); Z80.3 Family history of malignant neoplasm of breast
CPT/HCPCS: 77063; 77067